=== PATIENT | female | born 1995 | race Hispanic/Latino ===

== ENCOUNTER 2021-01-06 11:32 | Emergency (ER) | payer MEDICAID, OTHER, SELFPAY ==
[~2021-01-06] VITALS: Ht 154.9 cm; Wt 70.8 kg
[~2021-01-06 11:32] MED LIST: IBUP-2088 PO
[2021-01-06 11:59] VITALS: BP 93/55
[2021-01-06 12:01] LABS: BILIRUBIN,URINE Negative (NEGATIVE); COLOR,URINE Yellow (YELLOW); GLUCOSE, URINE (UA) Negative (NEGATIVE); KETONES,URINE Negative (NEGATIVE); LEUKOCYTE ESTERASE ,URINE Trace (NEGATIVE); NITRATE,URINE Negative (NEGATIVE); OCCULT BLOOD,URINE Negative (NEGATIVE); PH,URINE 7.5 (5.0-8.0); PROTEIN,URINE Negative (NEGATIVE)
[2021-01-06 12:02] LABS: APPEARANCE,URINE CLEAR (CLEAR)
[2021-01-06 12:04] LABS: BACTERIA,URINE Rare /HPF (None Seen); RBC,URINE 0-1 /HPF (0-1); SQUAMOUS EPITHELIAL CELL,UR Rare /HPF (0-2); WBC,URINE 0-1 /HPF (0-1)
[2021-01-06] MEDS ORDERED: IBUPROFEN 600 MG TABLET ONE (12:28)
[2021-01-06] MEDS ORDERED: IBUPROFEN 600 MG TABLET PO ONE (12:30)
[2021-01-06] MEDS ORDERED: AZIT250T9 PO (12:35)
[2021-01-06] MEDS ORDERED: IBUP-2070 PO (12:35)
[2021-01-06] MEDS ORDERED: ALBU8.5H8 IH (12:35)
[2021-01-06] MEDS ORDERED: ACET-3194 PO (12:35)
[2021-01-06] MEDS ORDERED: GUAI-899 PO (12:35)
== END 2021-01-06 13:01 | disposition home or self-care (01) ==
LOC: EDH 11:32
DX: U07.1 COVID-19 (principal); J12.82 Pneumonia due to coronavirus disease 2019; Z79.1 Long term (current) use of non-steroidal anti-inflammatories (NSAID); Z79.899 Other long term (current) drug therapy
CPT/HCPCS: 71045; 81001; 87635; 87804 ×2; 99284; C9803

== ENCOUNTER 2022-10-28 12:35 | Emergency (ER) | payer OTHER ==
[~2022-10-28] VITALS: Ht 154.9 cm; Wt 72.6 kg
[~2022-10-28 12:35] MED LIST changes: +ACET-3194 PO; +ALBU8.5H8 IH; +AZIT250T9 PO; +GUAI-899 PO; +IBUP-2070 PO
[2022-10-28] MEDS ORDERED: CEFTRIAXONE 1G VIAL IM ONE (13:30)
[2022-10-28] MEDS ORDERED: NAPR500T6 PO (13:35)
[2022-10-28] MEDS ORDERED: CEPH500B PO (13:35)
[2022-10-28 13:44] VITALS: BP 112/56
== END 2022-10-28 13:53 | disposition home or self-care (01) ==
LOC: EDH 12:35
DX: L73.9 Follicular disorder, unspecified (principal); Z79.899 Other long term (current) drug therapy
CPT/HCPCS: 99283; 96372; J0696